=== PATIENT | female | born 1975 | race Caucasian/White ===

== ENCOUNTER 2019-10-24 09:02 | Emergency (ER) | payer MEDICARE, OTHER ==
[2019-10-24] MEDS ORDERED: methylPREDNISolone Sodium Succinate 125 MG/2 ML SDV IVPUSH ONE (09:30)
[2019-10-24] MEDS ORDERED: Albuterol/Ipratropium 3.0-0.5 MG/3 ML Neb Soln NEB ONE (09:31)
[2019-10-24] MEDS ORDERED: Ondansetron 4 MG/2 ML SDV IVPUSH ONE (09:34)
[2019-10-24] MEDS ORDERED: Sodium Chloride 0.9% 1,000 ML IV SCH (09:45)
[2019-10-24] MEDS ORDERED: traMADol 50 MG Tab PO ONE (10:33)
--- NOTE | 2019-10-24 10:37 | EDM.PDOC ---
ED HPI GENERAL MEDICAL PROBLEM - General Stated Complaint: SOB Time Seen by Provider: 10/24/19 09:05 Source of Information: Reports: Patient History Limitations: Reports: No Limitations - History of Present Illness INITIAL COMMENTS - FREE TEXT/NARRATIVE: Patient presented to the ED because of cough and cold,whezing,dyspnea for 3 days. She has a h/o asthma,denies having any fever or chills. She used her inhalers without significant relief. She is also here for IVF therapy. She has a standing order per her provider but couldn't make it to the clinic today. She denies any N/V, diarrhea. Duration: Minutes: Quality: Reports: Ache, Stabbing - Related Data Allergies Allergy/AdvReac Type Severity Reaction Status Date / Time No Known Allergies Allergy Verified 10/24/19 10:23 Home Meds: Home Meds predniSONE [Prednisone] 40 mg PO DAILY #10 tablet 10/24/19 [Rx] Past Medical History Respiratory History: Reports: Asthma ED ROS GENERAL - Review of Systems Review Of Systems: See Below Constitutional: Reports: No Symptoms HEENT: Reports: No Symptoms Respiratory: Reports: Shortness of Breath, Wheezing, Cough. Denies: Sputum Cardiovascular: Reports: No Symptoms Endocrine: Reports: No Symptoms GI/Abdominal: Reports: No Symptoms : Reports: No Symptoms Musculoskeletal: Reports: No Symptoms Skin: Reports: No Symptoms Neurological: Reports: No Symptoms Psychiatric: Reports: No Symptoms ED EXAM, GENERAL - Physical Exam Exam: See Below Exam Limited By: No Limitations General Appearance: Alert, WD/WN, No Apparent Distress Ears: Normal External Exam, Normal Canal, Hearing Grossly Normal Nose: Normal Inspection, Normal Mucosa, No Blood Throat/Mouth: Normal Inspection, Normal Lips, Normal Teeth Head: Atraumatic, Other Neck: Normal Inspection, Supple, Non-Tender Respiratory/Chest: No Respiratory Distress, Lungs Clear, Rhonchi, Wheezing Cardiovascular: Normal Peripheral Pulses, Regular Rate, Rhythm, No Edema, No Gallop, No Murmur, No Rub GI/Abdominal: Normal Bowel Sounds, Soft, Non-Tender Course - Vital Signs Text/Narrative:: labs reviewed with patient and with full understanding NS 1 L bolus duoneb x1 solumedrol 125 mg IV Last Recorded V/S: Last Vital Signs Temp 36.8 C 10/24/19 09:02 Pulse 73 10/24/19 09:02 Resp 22 H 10/24/19 09:02 BP 75/51 L 10/24/19 09:02 Pulse Ox 99 10/24/19 09:02 - Orders/Labs/Meds Orders: Active Orders 24 hr Category Date Time Status RT Aerosol Therapy [RC] ASDIRECTED Care 10/24/19 09:31 Active Labs: Laboratory Tests 10/24/19 10/24/19 Range/Units 09:50 09:50 WBC 10.2 (4.5-12.0) X10-3/uL RBC 4.17 (3.23-5.20) x10(6)uL Hgb 11.7 (11.5-15.5) g/dL Hct 35.5 (30.0-51.3) % MCV 85.2 (80-96) fL MCH 28.0 (27.7-33.6) pg MCHC 32.8 (32.2-35.4) g/dL RDW 14.5 (11.5-15.5) % Plt Count 399 H (125-369) X10(3)uL MPV 8.9 (7.4-10.4) fL Neut % (Auto) 58.5 (46-82) % Lymph % (Auto) 30.0 (13-37) % [place] % (Auto) 7.5 (4-12) % Eos % (Auto) 3 (1.0-5.0) % Baso % (Auto) 1 (0-2) % Neut # (Auto) 5.9 (1.6-8.3) # Lymph # (Auto) 3.1 (0.6-5.0) # [place] # (Auto) 0.8 (0.0-1.3) # Eos # (Auto) 0.3 (0.0-0.8) # Baso # (Auto) 0.1 (0.0-0.2) # Sodium 140 (135-145) mmol/L Potassium 4.0 (3.5-5.3) mmol/L Chloride 107 (100-110) mmol/L Carbon Dioxide 21 (21-32) mmol/L BUN 12 (7-18) mg/dL Creatinine 1.1 H (0.55-1.02) mg/dL Est Cr Clr Drug Dosing TNP Estimated GFR (MDRD) 54 L (>60) BUN/Creatinine Ratio 10.9 (9-20) Glucose 93 (80-116) mg/dL Calcium 9.0 (8.6-10.2) mg/dL Meds: Medications Discontinued Medications Generic Name Dose Route Start Last Admin Trade Name Kel PRN Reason Stop Dose Admin Albuterol/Ipratropium 3 ml 10/24/19 09:31 10/24/19 10:05 Duoneb 3.0-0.5 Mg/3 Ml NEB 10/24/19 09:32 3 ml ONETIME ONE Administration Sodium Chloride 1,000 mls @ 150 mls/hr 10/24/19 09:45 10/24/19 10:19 Normal Saline IV 150 mls/hr ASDIRECTED YANICK Administration Methylprednisolone Sodium Succinate 125 mg 10/24/19 09:30 10/24/19 10:18 Solu-Medrol IVPUSH 10/24/19 09:31 125 mg ONETIME ONE Administration Ondansetron HCl 4 mg 10/24/19 09:34 10/24/19 10:19 Zofran IVPUSH 10/24/19 09:35 4 mg ONETIME ONE Administration Tramadol HCl 100 mg 10/24/19 10:33 10/24/19 10:40 Ultram PO 10/24/19 10:34 100 mg ONETIME ONE Administration Departure - Departure Time of Disposition: 11:15 Disposition: Home, Self-Care 01 Clinical Impression: Asthma exacerbation, Dehydration - Discharge Information Prescriptions: predniSONE [Prednisone] 40 mg PO DAILY #10 tablet Instructions: Asthma, Adult, Dehydration, Adult, [id number] Referrals: PCP,Not In Area [Primary Care Provider] - Forms: ED Department Discharge Additional Instructions: please read discharge instructions on asthma exacerbation(flare up) increase oral fluids prednisone 40 mg daily for 5 days starting today follow up as needed Sepsis Event Note - Focused Exam Date Exam was Performed: 10/25/19 Time Exam was Performed: 08:56 - My Orders Last 24 Hours: My Active Orders 10/24/19 09:31 RT Aerosol Therapy [RC] ASDIRECTED - Assessment/Plan Last 24 Hours: My Active Orders 10/24/19 09:31 RT Aerosol Therapy [RC] ASDIRECTED
--- NOTE | 2019-10-24 14:51 | CR ---
INDICATION: Dyspnea. CHEST, ONE VIEW: An AP portable upright view of the chest revealed the heart to be normal in size. A minimal dextroconvex scoliosis of the thoracic spine is noted. Mediastinum is unremarkable. An active infiltrate or effusion was not identified. Evidence of exogenous obesity is noted. IMPRESSION: No acute process. MTDD
== END 2019-10-24 11:59 | disposition home or self-care (01) ==
LOC: FB.ED 09:02
DX: J45.901 Unspecified asthma with (acute) exacerbation (principal); E86.0 Dehydration; Z79.899 Other long term (current) drug therapy
CPT/HCPCS: 36415; 71045; 80048; 85025; 94640; 96361; 96374; 96375; 99284; 99285; A9270; J2405; J2930; J7030; J7620-GY

== ENCOUNTER 2020-01-10 20:28 | Emergency (ER) | payer MEDICARE, OTHER ==
[2020-01-10] MEDS ORDERED: Albuterol/Ipratropium 3.0-0.5 MG/3 ML Neb Soln NEB ONE (20:41)
[2020-01-10] MEDS: methylPREDNISolone Sodium Succinate 125 MG/2 ML SDV IM ONE ×2 (20:46→21:00)
[2020-01-10] MEDS ORDERED: LORazepam 2 MG/ML SDV IVPUSH ONE (20:54)
[2020-01-10] MEDS ORDERED: Ondansetron 4 MG/2 ML SDV IVPUSH ONE (20:56)
[2020-01-10] MEDS ORDERED: Sodium Chloride 0.9% 1,000 ML IV SCH (21:00)
--- NOTE | 2020-01-10 23:33 | PCM.SN ---
- Free Text/Narrative Note: [facility] Date: 01/10/2020 Time: 2245 to 2300 Dx: Acute fall with head bleeding, confusion - Poor Peripheral Access Rx: Placement of Peripheral Venous Catheter Procedure: Placement of Peripheral Venous Catheter I was called by the Ed physician / RN to obtain a peripheral access site. I found a vein in the lateral ACF and prepped the site with an alcohol wipe X 1. I inserted and advanced a BD20 Ga. X 1.1 In. Insyte Autoguard catheter X 1 attempt. It advanced well and I did draw off blood for lab. A Op-Site dressing was applied. She did not respond at all to the I.V. placement. J Carlos Campo CRNA A
[2020-01-11] MEDS ORDERED: methylPREDNISolone Sodium Succinate 125 MG/2 ML SDV IVPUSH ONE (09:00)
--- NOTE | 2020-01-11 12:07 | EDM.PDOC ---
ED HPI GENERAL MEDICAL PROBLEM - General Chief Complaint: Respiratory Problem Stated Complaint: SOB Time Seen by Provider: 01/10/20 20:30 Source of Information: Reports: Patient History Limitations: Reports: No Limitations - History of Present Illness INITIAL COMMENTS - FREE TEXT/NARRATIVE: Patient presented to the ED because of cough and cold,dypsnea x 2 days. She also c/o N/V/D x1 day. There is no associated fever or chills. She was hyperventilating when she arrived in the ED. mid chest Pain Score (Numeric/FACES): 6 - Related Data Allergies Allergy/AdvReac Type Severity Reaction Status Date / Time No Known Allergies Allergy Verified 10/24/19 10:23 Home Meds: Home Meds predniSONE [Prednisone] 40 mg PO DAILY #10 tablet 10/24/19 [Rx] Past Medical History HEENT History: Reports: Hard of Hearing, Impaired Vision Cardiovascular History: Reports: Hypertension Respiratory History: Reports: Asthma Gastrointestinal History: Reports: GERD, Hiatal Hernia, Other (See Below) Other Gastrointestinal History: crohn's disease [employer] History: Reports: Musculoskeletal History: Reports: Arthritis Psychiatric History: Reports: Anxiety, Depression Endocrine/Metabolic History: Reports: Obesity/BMI 30+ - Infectious Disease History Infectious Disease History: Reports: MRSA - Past Surgical History GI Surgical History: Reports: Colostomy Female Surgical History: Reports: Hysterectomy Social & Family History - Family History Family Medical History: Noncontributory - Tobacco Use Smoking Status *Q: Former Smoker Used Tobacco, but Quit: Yes Month/Year Tobacco Last Used: 03/2016 - Caffeine Use Caffeine Use: Reports: Coffee ED ROS GENERAL - Review of Systems Review Of Systems: See Below Constitutional: Reports: No Symptoms HEENT: Reports: No Symptoms Respiratory: Reports: Shortness of Breath, Cough. Denies: Sputum Cardiovascular: Reports: No Symptoms Endocrine: Reports: No Symptoms GI/Abdominal: Reports: Diarrhea, Nausea, Vomiting : Reports: No Symptoms Musculoskeletal: Reports: No Symptoms Skin: Reports: No Symptoms Neurological: Reports: No Symptoms ED EXAM, GENERAL - Physical Exam Exam: See Below Exam Limited By: No Limitations General Appearance: Alert, No Apparent Distress Ears: Normal External Exam, Normal Canal, Hearing Grossly Normal, Normal TMs Nose: Normal Inspection, Normal Mucosa, No Blood Throat/Mouth: Normal Inspection, Normal Lips, Normal Teeth Head: Atraumatic, Normocephalic Neck: Normal Inspection, Supple, Non-Tender, Full Range of Motion Respiratory/Chest: No Respiratory Distress, Lungs Clear, Normal Breath Sounds, Wheezing Cardiovascular: Normal Peripheral Pulses, Regular Rate, Rhythm, No Edema, No Gallop, No JVD, No Murmur Back Exam: Normal Inspection, Full Range of Motion Extremities: Normal Inspection, Normal Range of Motion, Non-Tender Course - Vital Signs Text/Narrative:: influenza a/b-neg patient went AMA because we can't insert an IV line on her Last Recorded V/S: Last Vital Signs Temp 36.7 C 01/10/20 20:28 Pulse 87 01/10/20 20:28 Resp 17 01/10/20 20:28 BP 130/77 01/10/20 20:28 Pulse Ox 100 01/10/20 20:28 - Orders/Labs/Meds Orders: Active Orders 24 hr Category Date Time Status RT Aerosol Therapy [RC] ASDIRECTED Care 01/10/20 20:42 Active Meds: Medications Discontinued Medications Generic Name Dose Route Start Last Admin Trade Name Kel PRN Reason Stop Dose Admin Albuterol/Ipratropium 3 ml 01/10/20 20:41 01/10/20 20:46 Duoneb 3.0-0.5 Mg/3 Ml NEB 01/10/20 20:42 3 ml ONETIME ONE Administration Sodium Chloride 1,000 mls @ 999 mls/hr 01/10/20 21:00 Normal Saline IV ASDIRECTED [facility] Lorazepam 1 mg 01/10/20 20:54 Ativan IVPUSH 01/10/20 20:55 ONETIME ONE Methylprednisolone Sodium Succinate 125 mg 01/10/20 20:41 01/10/20 21:00 Solu-Medrol IM 01/10/20 20:42 Not Given ONETIME ONE Methylprednisolone Sodium Succinate 125 mg 01/11/20 09:00 Solu-Medrol IVPUSH 01/11/20 09:01 ONETIME ONE Ondansetron HCl 4 mg 01/10/20 20:56 Zofran IVPUSH 01/10/20 20:57 ONETIME ONE Departure - Departure Time of Disposition: 21:25 Disposition: Against Medical Advice 07 Condition: Good Clinical Impression: Gastroenteritis, Bronchitis, Anxiety attack - Discharge Information Referrals: PCP,None [Primary Care Provider] - Forms: ED Department Discharge Sepsis Event Note - Evaluation Sepsis Screening Result: No Definite Risk - My Orders Last 24 Hours: My Active Orders 01/10/20 20:42 RT Aerosol Therapy [RC] ASDIRECTED - Assessment/Plan Last 24 Hours: My Active Orders 01/10/20 20:42 RT Aerosol Therapy [RC] ASDIRECTED
== END 2020-01-10 21:25 | disposition left against medical advice (07) ==
LOC: FB.ED 20:28
DX: J40 Bronchitis, not specified as acute or chronic (principal); K52.9 Noninfective gastroenteritis and colitis, unspecified; F41.9 Anxiety disorder, unspecified; I10 Essential (primary) hypertension; Z87.891 Personal history of nicotine dependence; Z90.710 Acquired absence of both cervix and uterus
CPT/HCPCS: 87804; 87804-59; 94640; 99285-25; J2930; J7620-GY

== ENCOUNTER 2020-06-25 04:38 | Emergency (ER) | payer MEDICARE, OTHER ==
[2020-06-25] MEDS ORDERED: Ketorolac 30 MG/ML SDV IVPUSH ONE (05:23)
[2020-06-25] MEDS ORDERED: Gabapentin 100 MG Cap PO ONE (05:23)
[2020-06-25] MEDS ORDERED: Sodium Chloride 0.9% 1,000 ML IV ONE (05:23)
[2020-06-25] MEDS ORDERED: Doxepin 25 MG Cap PO ONE (05:30)
--- NOTE | 2020-06-25 05:39 | EDM.PDOC ---
ED HPI GENERAL MEDICAL PROBLEM - General Chief Complaint: Lower Extremity Injury/Pain Stated Complaint: leg pain Time Seen by Provider: 06/25/20 05:00 Source of Information: Reports: Patient History Limitations: Reports: No Limitations - History of Present Illness INITIAL COMMENTS - FREE TEXT/NARRATIVE: c/o b/l burning pain in LEs at 4p pt had burning in both legs below knees, one not worse that the other, not had before unable to sleep pain more medial and lateral, less anterior/posterior APAP and ibuprofen and tramadol and cyclobenzaprine (one dose of each) did not seem to help also on clonazepam, last took 1w ago PCP is Dr Washington in [place], Dr Gibson will do GI surgery in in [place] "at the [facility]" has had ulcerative colitis, says she is "having major surgery" although "I have had bigger", says part of esophagus will be removed and the surgeon will "wrap around" her GI tract had preop done one week ago, K was checked, other labs apparently not done at that time took a bath, did not help does get some relieve if she rubs down on her legs, says the pain is more in the muscle and not in the skin preop COVID came back neg not working, on disability pt requests Benadryl, now states she is having itching as well pt drank Boost for lunch and 1/2 bottle for supper says part of stomach and esophagus will be removed, that her esophagus is red on the inside has not been on sulcralfate she takes cyclobenzaprine and omeprazole and Gattex for her esophagus BP now is low, also inc'd pulse pressure, SBP 98 on arrival, says her usual SBP is 120, has been on lisinopril in past for her BP has not been on other BP meds - Related Data Allergies Allergy/AdvReac Type Severity Reaction Status Date / Time adhesive tape Allergy Rash Verified 06/25/20 05:12 Home Meds: Home Meds ClonazePAM [KlonoPIN] 0.5 mg PO ASDIRECTED 06/25/20 [History] Cyclobenzaprine [Flexeril] 10 mg PO ASDIRECTED 06/25/20 [History] Dicyclomine [Bentyl] 20 mg PO ASDIRECTED 06/25/20 [History] Doxepin [SINEquan] 25 mg PO BEDTIME #5 cap 06/25/20 [Rx] FLUoxetine HCl [Fluoxetine HCl] 20 mg PO ASDIRECTED 06/25/20 [History] Fluticasone/Salmeterol [Advair 500-50] 1 puff INH BID 06/25/20 [History] Gabapentin [Neurontin] 100 mg PO BEDTIME #5 cap 06/25/20 [Rx] Gabapentin [Neurontin] 600 mg PO ASDIRECTED 06/25/20 [History] Naproxen [EC-Naprosyn] 500 mg PO ASDIRECTED 06/25/20 [History] Norethindrone [Norethindrone Acetate] 5 mg PO ASDIRECTED 06/25/20 [History] Omeprazole 20 mg PO ASDIRECTED 06/25/20 [History] Ondansetron [Zofran ODT] 4 mg PO ASDIRECTED 06/25/20 [History] Rizatriptan [Maxalt PREP PERSON] 10 mg PO ASDIRECTED 06/25/20 [History] Teduglutide [Gattex] 5 mg SQ ASDIRECTED 06/25/20 [History] Terconazole 0.4 g TOP ASDIRECTED 06/25/20 [History] atenoloL [Atenolol] 50 mg PO ASDIRECTED 06/25/20 [History] buPROPion HCL [Bupropion Xl] 300 mg PO ASDIRECTED 06/25/20 [History] traMADol [Ultram] 50 mg PO ASDIRECTED 06/25/20 [History] Past Medical History HEENT History: Reports: Hard of Hearing, Impaired Vision Cardiovascular History: Reports: Hypertension Respiratory History: Reports: Asthma Gastrointestinal History: Reports: GERD, Hiatal Hernia, Other (See Below) Other Gastrointestinal History: crohn's disease 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: Musculoskeletal History: Reports: Arthritis Psychiatric History: Reports: Anxiety, Depression Endocrine/Metabolic History: Reports: Obesity/BMI 30+ - Infectious Disease History Infectious Disease History: Reports: MRSA - Past Surgical History GI Surgical History: Reports: Colostomy Female Surgical History: Reports: Hysterectomy Social & Family History - Family History Family Medical History: Noncontributory - Tobacco Use Smoking Status *Q: Former Smoker Used Tobacco, but Quit: No - Caffeine Use Caffeine Use: Reports: Coffee Review of Systems - Review of Systems Review Of Systems: See Below Constitutional: Reports: No Symptoms Eyes: Reports: No Symptoms Ears: Reports: No Symptoms Nose: Reports: No Symptoms Mouth/Throat: Reports: No Symptoms Respiratory: Reports: No Symptoms Cardiovascular: Reports: No Symptoms GI/Abdominal: Reports: No Symptoms Genitourinary: Reports: No Symptoms Musculoskeletal: Reports: No Symptoms Skin: Reports: No Symptoms Neurological: Reports: Paresthesia, Other (dysethesia, burning) Psychiatric: Reports: No Symptoms ED EXAM, GENERAL - Physical Exam Exam: See Below Exam Limited By: No Limitations General Appearance: Alert Nose: Normal Inspection Head: Atraumatic, Normocephalic Neck: Carotid Bruit Respiratory/Chest: No Respiratory Distress Cardiovascular: Regular Rate, Rhythm GI/Abdominal: Soft, Non-Tender Back Exam: Normal Inspection, Full Range of Motion Extremities: Normal Inspection, Normal Range of Motion, Non-Tender, No Pedal Edema, Normal Capillary Refill, Other (no definite tender to palpation, no spasm, no edema, no cords, no Homans, symmetric, DP pulse 1+ b/l and perhaps mildly dec'd) Neurological: Alert, Oriented, CN II-XII Intact, Normal Cognition Skin Exam: Warm, Dry, Intact, Normal Color, No Rash Lymphatic: No Adenopathy Course - Vital Signs Last Recorded V/S: Last Vital Signs Temp 36.3 C 06/25/20 04:55 Pulse 70 06/25/20 07:15 Resp 18 06/25/20 07:15 BP 118/72 06/25/20 07:15 Pulse Ox 98 06/25/20 07:15 - Orders/Labs/Meds Labs: Laboratory Tests 06/25/20 06/25/20 06/25/20 Range/Units 05:50 06:00 06:05 WBC 8.2 (4.5-12.0) X10-3/uL RBC 4.18 (3.23-5.20) x10(6)uL Hgb 11.1 L (11.5-15.5) g/dL Hct 34.5 (30.0-51.3) % MCV 82.4 (80-96) fL MCH 26.6 L (27.7-33.6) pg MCHC 32.3 (32.2-35.4) g/dL RDW 16.0 H (11.5-15.5) % Plt Count 279 (125-369) X10(3)uL MPV 8.9 (7.4-10.4) fL Neut % (Auto) 37.2 L (46-82) % Lymph % (Auto) 43.0 H (13-37) % [place] % (Auto) 14.3 H (4-12) % Eos % (Auto) 5 (1.0-5.0) % Baso % (Auto) 1 (0-2) % Neut # (Auto) 3.0 (1.6-8.3) # Lymph # (Auto) 3.6 (0.6-5.0) # [place] # (Auto) 1.2 (0.0-1.3) # Eos # (Auto) 0.4 (0.0-0.8) # Baso # (Auto) 0.0 (0.0-0.2) # Sodium (135-145) mmol/L Potassium (3.5-5.3) mmol/L Chloride (100-110) mmol/L Carbon Dioxide (21-32) mmol/L BUN (7-18) mg/dL Creatinine (0.55-1.02) mg/dL Est Cr Clr Drug Dosing mL/min Estimated GFR (MDRD) (>60) BUN/Creatinine Ratio (9-20) Glucose (80-116) mg/dL Calcium (8.6-10.2) mg/dL Magnesium (1.8-2.5) mg/dL Total Bilirubin (0.1-1.3) mg/dL AST (5-25) IU/L ALT (12-36) U/L Alkaline Phosphatase (56-112) IU/L Creatine Kinase (60-160) IU/L C-Reactive Protein (0.5-0.9) mg/dL Total Protein (6.0-8.0) g/dL Albumin (3.5-5.2) g/dL Globulin g/dL Albumin/Globulin Ratio TSH, Ultra Sensitive (0.36-3.74) IU/mL Urine Color Yellow (YELLOW) Urine Appearance Slightly cloudy (CLEAR) Urine pH 5.0 (5.0-6.5) Ur Specific [place] 1.015 (1.010-1.025) Urine Protein Negative (NEGATIVE) mg/dL Urine Glucose (UA) Normal (NORMAL) mg/dL Urine Ketones 15 H (NEGATIVE) mg/dL Urine Occult Blood Moderate H (NEGATIVE) Urine Nitrite Negative (NEGATIVE) Urine Bilirubin Negative (NEGATIVE) Urine Urobilinogen Normal (NEGATIVE) mg/dL Ur Leukocyte Esterase Moderate H (NEGATIVE) Urine RBC 0-5 (0-5) Urine WBC 5-10 H (0-5) Ur Squamous Epith Cells Few H (NS,R,O) Urine Bacteria Few H (NS) Urine Mucus Few H (NS) Urine Opiates Screen Negative (NEGATIVE) Ur Oxycodone Screen Negative (NEGATIVE) Ur Propoxyphene Screen Negative (NEGATIVE) Ur Barbituates Screen Negative (NEGATIVE) Ur Tricyclics Screen Positive H (NEGATIVE) Ur Phencyclidine Scrn Negative (NEGATIVE) Ur Amphetamine Screen Positive H (NEGATIVE) Urine MDMA Screen Negative (NEGATIVE) U Benzodiazepines Scrn Negative (NEGATIVE) U Cocaine Metab Screen Negative (NEGATIVE) U Marijuana (THC) Screen Negative (NEGATIVE) 06/25/20 06/25/20 06/25/20 Range/Units 06:05 06:05 06:05 WBC (4.5-12.0) X10-3/uL RBC (3.23-5.20) x10(6)uL Hgb (11.5-15.5) g/dL Hct (30.0-51.3) % MCV (80-96) fL MCH (27.7-33.6) pg MCHC (32.2-35.4) g/dL RDW (11.5-15.5) % Plt Count (125-369) X10(3)uL MPV (7.4-10.4) fL Neut % (Auto) (46-82) % Lymph % (Auto) (13-37) % [place] % (Auto) (4-12) % Eos % (Auto) (1.0-5.0) % Baso % (Auto) (0-2) % Neut # (Auto) (1.6-8.3) # Lymph # (Auto) (0.6-5.0) # [place] # (Auto) (0.0-1.3) # Eos # (Auto) (0.0-0.8) # Baso # (Auto) (0.0-0.2) # Sodium 135 (135-145) mmol/L Potassium 3.8 (3.5-5.3) mmol/L Chloride 102 D (100-110) mmol/L Carbon Dioxide 22 (21-32) mmol/L BUN 13 (7-18) mg/dL Creatinine 1.4 H (0.55-1.02) mg/dL Est Cr Clr Drug Dosing 40.98 mL/min Estimated GFR (MDRD) 41 L (>60) BUN/Creatinine Ratio 9.3 (9-20) Glucose 94 (80-116) mg/dL Calcium 8.2 L (8.6-10.2) mg/dL Magnesium 1.8 (1.8-2.5) mg/dL Total Bilirubin 0.2 (0.1-1.3) mg/dL AST 30 H (5-25) IU/L ALT 40 H (12-36) U/L Alkaline Phosphatase 113 H (56-112) IU/L Creatine Kinase 112 (60-160) IU/L C-Reactive Protein 1.3 H (0.5-0.9) mg/dL Total Protein 6.9 (6.0-8.0) g/dL Albumin 3.1 L (3.5-5.2) g/dL Globulin 3.8 g/dL Albumin/Globulin Ratio 0.8 TSH, Ultra Sensitive (0.36-3.74) IU/mL Urine Color (YELLOW) Urine Appearance (CLEAR) Urine pH (5.0-6.5) Ur Specific [place] (1.010-1.025) Urine Protein (NEGATIVE) mg/dL Urine Glucose (UA) (NORMAL) mg/dL Urine Ketones (NEGATIVE) mg/dL Urine Occult Blood (NEGATIVE) Urine Nitrite (NEGATIVE) Urine Bilirubin (NEGATIVE) Urine Urobilinogen (NEGATIVE) mg/dL Ur Leukocyte Esterase (NEGATIVE) Urine RBC (0-5) Urine WBC (0-5) Ur Squamous Epith Cells (NS,R,O) Urine Bacteria (NS) Urine Mucus (NS) Urine Opiates Screen (NEGATIVE) Ur Oxycodone Screen (NEGATIVE) Ur Propoxyphene Screen (NEGATIVE) Ur Barbituates Screen (NEGATIVE) Ur Tricyclics Screen (NEGATIVE) Ur Phencyclidine Scrn (NEGATIVE) Ur Amphetamine Screen (NEGATIVE) Urine MDMA Screen (NEGATIVE) U Benzodiazepines Scrn (NEGATIVE) U Cocaine Metab Screen (NEGATIVE) U Marijuana (THC) Screen (NEGATIVE) 06/25/20 Range/Units 06:05 WBC (4.5-12.0) X10-3/uL RBC (3.23-5.20) x10(6)uL Hgb (11.5-15.5) g/dL Hct (30.0-51.3) % MCV (80-96) fL MCH (27.7-33.6) pg MCHC (32.2-35.4) g/dL RDW (11.5-15.5) % Plt Count (125-369) X10(3)uL MPV (7.4-10.4) fL Neut % (Auto) (46-82) % Lymph % (Auto) (13-37) % [place] % (Auto) (4-12) % Eos % (Auto) (1.0-5.0) % Baso % (Auto) (0-2) % Neut # (Auto) (1.6-8.3) # Lymph # (Auto) (0.6-5.0) # [place] # (Auto) (0.0-1.3) # Eos # (Auto) (0.0-0.8) # Baso # (Auto) (0.0-0.2) # Sodium (135-145) mmol/L Potassium (3.5-5.3) mmol/L Chloride (100-110) mmol/L Carbon Dioxide (21-32) mmol/L BUN (7-18) mg/dL Creatinine (0.55-1.02) mg/dL Est Cr Clr Drug Dosing mL/min Estimated GFR (MDRD) (>60) BUN/Creatinine Ratio (9-20) Glucose (80-116) mg/dL Calcium (8.6-10.2) mg/dL Magnesium (1.8-2.5) mg/dL Total Bilirubin (0.1-1.3) mg/dL AST (5-25) IU/L ALT (12-36) U/L Alkaline Phosphatase (56-112) IU/L Creatine Kinase (60-160) IU/L C-Reactive Protein (0.5-0.9) mg/dL Total Protein (6.0-8.0) g/dL Albumin (3.5-5.2) g/dL Globulin g/dL Albumin/Globulin Ratio TSH, Ultra Sensitive 4.26 H (0.36-3.74) IU/mL Urine Color (YELLOW) Urine Appearance (CLEAR) Urine pH (5.0-6.5) Ur Specific [place] (1.010-1.025) Urine Protein (NEGATIVE) mg/dL Urine Glucose (UA) (NORMAL) mg/dL Urine Ketones (NEGATIVE) mg/dL Urine Occult Blood (NEGATIVE) Urine Nitrite (NEGATIVE) Urine Bilirubin (NEGATIVE) Urine Urobilinogen (NEGATIVE) mg/dL Ur Leukocyte Esterase (NEGATIVE) Urine RBC (0-5) Urine WBC (0-5) Ur Squamous Epith Cells (NS,R,O) Urine Bacteria (NS) Urine Mucus (NS) Urine Opiates Screen (NEGATIVE) Ur Oxycodone Screen (NEGATIVE) Ur Propoxyphene Screen (NEGATIVE) Ur Barbituates Screen (NEGATIVE) Ur Tricyclics Screen (NEGATIVE) Ur Phencyclidine Scrn (NEGATIVE) Ur Amphetamine Screen (NEGATIVE) Urine MDMA Screen (NEGATIVE) U Benzodiazepines Scrn (NEGATIVE) U Cocaine Metab Screen (NEGATIVE) U Marijuana (THC) Screen (NEGATIVE) Meds: Medications Discontinued Medications Generic Name Dose Route Start Last Admin Trade Name Freq PRN Reason Stop Dose Admin Diphenhydramine HCl 25 mg 06/25/20 05:45 06/25/20 05:57 Benadryl IVPUSH 06/25/20 05:46 25 mg ONETIME ONE Administration Diphenhydramine HCl 25 mg 06/25/20 07:13 06/25/20 07:16 Benadryl IVPUSH 06/25/20 07:14 25 mg ONETIME ONE Administration Doxepin HCl 25 mg 06/25/20 05:30 06/25/20 06:11 Sinequan PO 06/25/20 05:31 25 mg ONETIME ONE Administration Gabapentin 100 mg 06/25/20 05:23 06/25/20 06:11 Neurontin PO 06/25/20 05:24 100 mg ONETIME ONE Administration Sodium Chloride 1,000 mls @ 999 mls/hr 06/25/20 05:23 06/25/20 05:53 Normal Saline IV 06/25/20 06:23 999 mls/hr .BOLUS ONE Administration Ketorolac Tromethamine 30 mg 06/25/20 05:23 08/17/20 06:07 Toradol IVPUSH 06/25/20 05:24 30 mg ONETIME ONE Administration - Re-Assessments/Exams Free Text/Narrative Re-Assessment/Exam: 06/25/20 07:27 pt fidgeting and anxious the entire time here, she dropped the remote 3 times, she was in and out of her room pt reports she was scheduled to see a counselor 2m ago but this was postponed d/t COVID burning gone after meds, still had itching despite 2 meds (Benadryl 25 mg IV and doxepin 25 mg PO), give a 2nd dose of Benadryl 25 mg IV at time of d/c, pt was eager to get home baseline labs unknown, hence the need to have further discussion with PCP BP 95/63 at d/c after 1 liter NS cause of inc'd LFTs uncertain, pt denies alcohol hx inc'd CRP likely her UC Free Text/Narrative Re-Assessment/Exam: 06/26/20 19:13 pt was jittery during her ED stay, after treating her sxs, a urine drug screen was sent at the time of her d/c which came back positive for amphetamines altho pt has no h/o of ADHD meds and her MPMP is neg for any controlled med in the past year shortly after d/c, I called [facility] and requested to speak with PCP Vladimir March from [place], altho I did not receive a call back I called [facility] 30 minutes ago who reported that pt had not kept an apt with PCP yesterday or today as instructed, Dr Mariee is mental health professional for fam med and called me back and I reported the positive utox for amphetamines the lab here did sent the same urine specimen yesterday afternoon to [facility] for methamphetamines, altho this has not come back yet pt is known by local RN to have a h/o alcohol abuse at times in the past, did not appear intoxicated during ED visit altho ethanol level is neg Departure - Departure Time of Disposition: 07:16 Disposition: Home, Self-Care 01 Condition: Good Clinical Impression: Paresthesia of both lower extremities, Pruritic condition, Insomnia, Anxiety, Dehydration, Ketonuria, Elevated liver function tests, Elevated C-reactive protein (CRP), Hypotension, Elevated serum creatinine, Hypoalbuminemia, Normochromic normocytic anemia - Discharge Information *PRESCRIPTION DRUG MONITORING PROGRAM REVIEWED*: Not Applicable *COPY OF PRESCRIPTION DRUG MONITORING REPORT IN PATIENT TAMMY: Not Applicable Prescriptions: Gabapentin [Neurontin] 100 mg PO BEDTIME #5 cap Doxepin [SINEquan] 25 mg PO BEDTIME #5 cap Instructions: Paresthesia, Rehydration, Adult Referrals: PCP,Not In Area [Primary Care Provider] - Forms: ED Department Discharge Additional Instructions: For leg burning, take gabapentin 100 mg 1 capsule at bedtime for the next several days. For leg burning and itching, take doxepin 25 mg 1 tablet at bedtime for the next several days. For itching, as needed, take diphenhydramine 25 mg 1 tab every 6 hours as needed. See your primary care doctor today or tomorrow for further evaluation and recommendations and to review your lab tests from today. Sepsis Event Note (ED) - Evaluation Sepsis Screening Result: No Definite Risk
[2020-06-25] MEDS ORDERED: diphenhydrAMINE 50 MG/ML SDV IVPUSH ONE ×2 (05:45→07:13)
[2020-07-02 11:08] LABS: L-METHAMPHETAMINE Not Detected (.)
== END 2020-06-25 07:35 | disposition home or self-care (01) ==
LOC: FB.ED 04:38
DX: R20.2 Paresthesia of skin (principal); L29.9 Pruritus, unspecified; F41.9 Anxiety disorder, unspecified; E86.0 Dehydration; I95.9 Hypotension, unspecified; E88.09 Other disorders of plasma-protein metabolism, not elsewhere classified; D64.9 Anemia, unspecified; R79.89 Other specified abnormal findings of blood chemistry; R79.82 Elevated C-reactive protein (CRP); R82.4 Acetonuria; I10 Essential (primary) hypertension; F32.9 Major depressive disorder, single episode, unspecified; J45.909 Unspecified asthma, uncomplicated; K21.9 Gastro-esophageal reflux disease without esophagitis; E66.9 Obesity, unspecified; Z87.891 Personal history of nicotine dependence; Z88.8 Allergy status to other drugs, medicaments and biological substances; Z79.899 Other long term (current) drug therapy; Z68.34 Body mass index [BMI] 34.0-34.9, adult
CPT/HCPCS: 36415; 80053; 80305; 81001; 82550; 83735; 84443; 85025; 86140; 96361; 96374; 96375; 96376; 99283; A9270; G0480; J1200; J1885; J7030